=== PATIENT | female | born 1965 | race Caucasian/White ===

== ENCOUNTER 2021-03-07 06:38 | Observation (INO) ==
[~2021-03-07 06:38] MED LIST: Buffered Lidocaine 1% SYRIN 1 ml INTRADERM ONE; Lactated Ringers 1000 ml BAG 1,000 ML IV SCH
[2021-03-07] MEDS ORDERED: ceFAZolin 2 GM in NS PREMIX 2 GM/100 ML BAG IVPB ONE (07:02)
[2021-03-07] MEDS ORDERED: Midazolam 2 mg/2 ml VIAL 1 mg/ml 2 ml VIAL (2 mg) ONE (07:54)
[2021-03-07] MEDS ORDERED: fentaNYL 100 mcg/2 ml 50 MCG/ML VIAL ONE ×3 (07:54→12:54)
[2021-03-07] MEDS ORDERED: Lidocaine 2% PF 5 ML VIAL ONE (07:56)
[2021-03-07] MEDS ORDERED: Propofol 10 MG/ML 20 ML BTL ONE (07:56)
[2021-03-07] MEDS ORDERED: Bupivacaine 0.5% SDV PF 30ML VIAL ONE (07:59)
[2021-03-07] MEDS ORDERED: Lidocaine 2% PF 10 ML AMP ONE (08:07)
[2021-03-07] MEDS ORDERED: ROPIVACAINE 5 MG/ML 30 ML BTL (0.5%) ONE (08:07)
[2021-03-07] MEDS ORDERED: Lidocaine 1% MPF 5 ML VIAL ONE (08:19)
[2021-03-07] MEDS ORDERED: Dexamethasone IV 4 MG/ML VIAL 1 ml VIAL ONE (10:26)
[2021-03-07] MEDS ORDERED: Ondansetron 4 mg VIAL 2 MG/ML 2 ml VIAL ONE (10:26)
[2021-03-07] MEDS ORDERED: Phenylephrine 40 mcg/mL 10mL (400mcg) SYRINGE ONE (10:34)
[2021-03-07] MEDS ORDERED: Phenylephrine IV 10 MG/ML 1 ml VIAL ONE ×2 (10:44→10:45)
[2021-03-07] MEDS ORDERED: fentaNYL 100 mcg/2 ml 50 MCG/ML VIAL IV PRN (11:03)
[2021-03-07] MEDS ORDERED: Acetaminophen IV 1 GM/100ML 100 ML IV PRN (11:03)
[2021-03-07] MEDS ORDERED: Ondansetron 4 mg VIAL 2 MG/ML 2 ml VIAL IV PRN ×2 (11:03→12:14)
[2021-03-07] MEDS ORDERED: DiMENhydriNATE IV 50 mg/ml 1 ml VIAL IV PUSH PRN (11:03)
[2021-03-07] MEDS ORDERED: HYDROmorphone 1 MG/1 ML SYRINGE IV PRN (11:03)
[2021-03-07] MEDS ORDERED: Naloxone 0.4 mg VIAL 0.4 mg/ml 1 ml VIAL IV PRN (11:03)
[2021-03-07] MEDS ORDERED: Magnesium Hydroxide LIQ 30 ML UDC PO PRN (12:14)
[2021-03-07] MEDS ORDERED: Ondansetron ODT 4 mg TAB 4 MG TAB PO PRN (12:14)
[2021-03-07] MEDS ORDERED: diPHENhydraMINE 25 mg TAB PO PRN (12:14)
[2021-03-07] MEDS ORDERED: Lactulose 30 ml UDC PO PRN (12:14)
[2021-03-07] MEDS ORDERED: Acetaminophen IV 1 GM/100ML 100 ML IV ONE (12:14)
[2021-03-07] MEDS ORDERED: diPHENhydraMINE IV 50 MG/ML 1 ml VIAL (BENADRYL) IV PRN (12:14)
[2021-03-07] MEDS ORDERED: Morphine 2 MG/ML SYRINGE IV PRN (12:20)
[2021-03-07] MEDS ORDERED: Albuterol HFA INHALER 8 gm MDI INH PRN (12:22)
[2021-03-07] MEDS ORDERED: Lactated Ringers 1000 ml BAG 1,000 ML IV SCH (13:00)
[2021-03-07 16:58] VITALS: BP 117/83
[2021-03-07] MEDS ORDERED: ceFAZolin 1 GM ADVAN 1 GM in NS 0.9% 50 ML 50 ML IVPB SCH (18:30)
[2021-03-07] MEDS ORDERED: Magnesium Hydroxide LIQ 30 ML UDC PO SCH (21:00)
[2021-03-08] MEDS ORDERED: Vitamin THERAPEUTIC TAB PO SCH (09:00)
== END 2021-03-07 18:50 | disposition home or self-care (01) ==
LOC: SSU 06:38 → OR 06:38
PROVIDERS: ADMIT Physician Assistant; ATTEND Orthopaedic Surgery